=== PATIENT | female | born 1960 | race Caucasian/White ===

== ENCOUNTER 2024-12-14 05:44 | Emergency (ER) | payer OTHER, SELFPAY ==
[2024-12-14 05:44] VITALS: BMI 29.6
[2024-12-14 05:49] VITALS: BP 145/68
[2024-12-14 06:00] VITALS: BP 133/71
--- NOTE | 2024-12-14 06:41 | ED.GENMED ---
History of Present Illness
General
Chief Complaint: Dizziness
Source: patient and spouse
Time Seen by Provider: 12/14/24 06:20
History of Present Illness
History of Present Illness:
64-year-old female with no significant past medical history presenting to the emergency department for evaluation after she developed a rather sudden onset of vertigo early Wednesday morning, symptoms seem to be worse with movement, resolved when
laying still, initially more mild in presentation, symptoms mostly resolved yesterday with patient stating she felt as if she were in her usual state of health and then again this morning after she got up to use the restroom and go back into bed she
felt the sudden onset of vertigo with more intensity. She describes the sensation as if the room is spinning, when sitting still she states feeling a little bit better and only other symptom that she noted was some nausea. Patient did report in
triage that she felt a little bit of congestion but states that she does not feel this is any different than her usual. She does note that she was recently in [place] and the day that the symptoms started she was returning home. On the ride home
she said she was nauseous and needed to use the restroom more frequently to urinate but is otherwise not having any urinary symptoms and does note that she did drink a decent amount of water which could have been related. She denies any fevers or
recent URI-like symptoms, no chest pain or shortness of breath, no palpitations. She states the only time she has had vertigo like symptoms in the past was when she was on a [employer] but the symptoms dissipated quite quickly.
Past History
Past History
ED Past Medical History: None
ED Past Surgical History: and Orthopedic
Social History
Tobacco: Non-smoker
Alcohol: Occasional
Drug: None
Personal:
Living: with family
Employment: Employed
Review of Systems
Review of Systems
All Other Systems: ROS reviewed and negative except as documented in HPI and ROS
Phy Exam
Physical Exam
Physical Exam:
GENERAL: Alert , in no apparent distress
EYE: pupils equal and reactive, 4 mm bilateral, EOMI, leftward fatigable horizontal nystagmus noted which did elicit patient's vertigo
NECK: Supple
ENT: o/p clr, mmm.
CARDIAC: Regular rate and rhythm .
LUNGS: Clear breath sounds bilaterally, no acute respiratory distress, no wheezes/rales/rhonchi
ABDOMEN: Soft, without focal tenderness, no r/g, no cvat
NEUROLOGICAL: Alert and oriented, no focal neuro deficits, patient did ambulate with steady gait, no dysmetria or ataxia
SKIN: Warm and dry, skin intact.
MUSCULOSKELETAL: No edema, well perfused.
PSYCH: Normal and appropriate interaction.
Scores
Heart Failure Risk
Heart Failure Risk Score: Not Applicable
Heart Score for Chest Pain Patients
STEMI patient?: Not applicable
Withdrawal Assessment of Alcohol
Withdrawal Assessment Completed?: Not applicable
Course
Orders/Labs/Results
Orders:
Orders
12/14/24 06:40
Electrocardiogram (*1) Urgent
Reason for Study: Vertigo / Dizzy
CT Head W/o Iv Contrast Urgent
Comment:
Reason For Exam: vertigo
EKG- Treatment ONCE
Meclizine [Antivert] 25 mg PO NOW STA
Ondansetron Injectable [Zofran] 4 mg IV NOW STA
PT Consult [Pt Eval And Treat] Urgent
Treatment: vestibular tx
Activity Level: Ambulate
12/14/24 06:52
Basic Metabolic Panel Urgent
Complete Blood Count/With Diff Urgent
Urinalysis Reflex To Culture Urgent
Date Specimen was Collected: 12/14/24
Time Specimen was Collected: 06:41
Abnormal Lab Results
12/14/24
06:52
WBC 11.5 H 10^3/uL
(4.8-10.8)
MCH 31.8 H pg
(27.0-31.0)
Abs Immat Gran (auto) 0.2 H 10^3/uL
(0-0.05)
Absolute Neuts (auto) 9.1 H 10^3/uL
(1.4-6.5)
Immature Gran % 1.7 H %
(0-0.5)
Neutrophils % 78.8 H %
(42.2-75.2)
Lymphocytes % 13.4 L %
(20.5-51.1)
BUN 19 H mg/dl
(7-17)
Creatinine 0.5 L mg/dL
(0.6-1.0)
Glucose 169 H mg/dl
(70-99)
12/14/24 06:52
12/14/24 06:52
Vital Signs
Initial and Last Documented VS:
Initial Vital Signs
Temp Pulse Resp BP Pulse Ox
98.1 F 80 20 145/68 99
12/14/24 05:49 12/14/24 05:49 12/14/24 05:49 12/14/24 05:49 12/14/24 05:49
Last Documented Vital Signs
Temp Pulse Resp BP Pulse Ox
98 F 78 16 121/78 99
12/14/24 09:00 12/14/24 09:00 12/14/24 09:00 12/14/24 09:00 12/14/24 09:00
MDM/Problems Addressed
Differential Diagnosis Includes:
- BPPV
- Labyrinthitis
- Vestibular neuritis
- Central vertigo/cerebellar stroke
- Electrolyte imbalance
- Anemia
- Sinusitis
- Intracranial bleeding
- Cardiac arrhythmia
MDM/Problems Addressed:
64-year-old female presenting the ER for episodic vertigo, symptoms started Wednesday, improved yesterday but returned this morning more severe. Leftward horizontal nystagmus noted on exam which did elicit symptoms as well as movements exacerbating
symptoms. Patient otherwise well-appearing and in no acute distress. Will check labs, EKG, CT of the head. Initiate treatment with meclizine and Zofran, physical therapy consult ordered for vestibular therapy. Disposition pending.
*Radiology
Radiology exam reviewed: radiology read reviewed
*Pulse Oximetry
SaO2: 99
Oxygen Mode of Delivery: Room air
Patient hypoxic: no
*Critical Care Note
Total Time (30-74mins, 75-104mins- exclusive of procedures): Not Applicable
Patient Management
Escalation/DeEscalation of care consider admission/obs:
Patient CT scan is without any acute pathologies. Labs unremarkable. Feels better following meds and able to ambulate. Seen by PT. Recommended for outpatient treatment. Patient agreeable to this. Rx for zofran and antivert sent to pharmacy. Patient
aware of return precautions
ED Attending Note
-
Portions of this chart may have been created with voice recognition software.� Occasional wrong word or��sound alike� substitutions may have occurred due to the inherent limitations of voice recognition software.
Discharge Plan
Departure
Patient Disposition: Home (Routine Discharge)
Date of Disposition: 12/14/24
Time of Disposition: 09:09
Patient with high blood pressure during this ER visit?: Yes
Discharge Problem:
Vertigo
Instructions: Vertigo (a Type of Dizziness) (DC)
Prescriptions:
New
meclizine 25 mg tablet
25 mg PO TID PRN (Reason: dizziness) Qty: 15 0RF
ondansetron 4 mg tablet,disintegrating
4 mg PO TIDPRN PRN (Reason: nausea/vomiting) Qty: 10 0RF
Referrals:
UNKNOWN - PT DOES,NOT KNOW [Family Provider]
Interventions
Interventions:
*Risk Screen - Suicide Last Done: 12/14/24 05:49
*General Assessment Last Done: 12/14/24 05:49
*Neglect/Abuse Screening Last Done: 12/14/24 05:49
*ED- Fall Risk Assessment Last Done: 12/14/24 05:49
*ED COVID-19 Vaccine History Last Done: 12/14/24 05:49
*Nursing Disposition Last Done: 12/14/24 09:13
ED- Neurological Assessment Last Done: 12/14/24 06:40
ED- Cardiac Assessment Last Done: 12/14/24 09:13
ED Swallowing Screen Last Done: 12/14/24 06:40
Discharge Date and Time
Discharge Date/Time: 12/14/24 09:13
Print Language: PASHTO
[2024-12-14] MEDS: ZOFRAN 4 MG IV (06:46)
[2024-12-14] MEDS: ANTIVERT 25 MG PO (06:46)
[2024-12-14 06:58] LABS: % Basophils 0.4 % (0-2); % Eosinophils 0.6 % (0-6); % Immature Granulocytes 1.7 % (0-0.5); % Lymphocytes 13.4 % (20.5-51.1); % Monocytes 5.1 % (1.7-9.3); % Neutrophils 78.8 % (42.2-75.2); Absolute Basophils 0.1 10^3/uL (0-0.2); Absolute Eosinophils 0.1 10^3/uL (0-0.7); Absolute Immature Granulocytes 0.2 10^3/uL (0-0.05); Absolute Lymphocytes 1.5 10^3/uL (1.2-3.4); Absolute Monocytes 0.6 10^3/uL (0.1-0.6); Absolute Neutrophils 9.1 10^3/uL (1.4-6.5); Hematocrit 39.7 % (37.0-47.0); Hemoglobin 14.1 g/dL (12.0-16.0); Mean Corp Hgb Conc. 35.5 g/dL (33.0-37.0); Mean Corpuscular Hgb 31.8 pg (27.0-31.0); Mean Corpuscular Volume 89.6 fL (81.0-99.0); Mean Platelet Volume 10.1 fL (7.4-10.4); Nucleated Red Blood Cells % 0 %; Platelet Count 246 10^3/uL (130-400); Red Blood Cell Count 4.43 10^6/uL (4.20-5.40); Red Cell Dist. Width 13.2 % (11.5-14.5); White Blood Cell Count 11.5 10^3/uL (4.8-10.8)
[2024-12-14 07:08] LABS: Urine Albumin Negative (Neg - Trace); Urine Bilirubin Negative (Negative); Urine Character Clear (Clear); Urine Color Yellow; Urine Glucose Negative (Negative); Urine Ketone Negative (Negative); Urine Leukocyte Negative (Negative); Urine Nitrite Negative (Negative); Urine Occult Blood Negative (Negative); Urine Urobilinogen Negative (Neg - 1+)
[2024-12-14 07:29] LABS: Blood Urea Nitrogen 19 mg/dl (7-17); Calcium 9.4 mg/dl (8.4-10.2); Carbon Dioxide 24 mmol/L (22-30); Chloride 107 mmol/L (98-107); Estimated Creatinine Clearance 82 ml/min; Glucose 169 mg/dl (70-99); Potassium 3.9 mmol/L (3.5-5.1); Sodium 138 mmol/L (135-145); eGFR > 60.00
[2024-12-14 09:00] VITALS: BP 121/78
== END 2024-12-14 09:13 | disposition home or self-care (01) ==
LOC: EMR 05:44
PROVIDERS: Physician Assistant Medical; EMERGENCY PHYSICIAN Student in an Organized Health Care Education/Training Program
DX: R42 Dizziness and giddiness (principal); Z59.12 Inadequate housing utilities
CPT/HCPCS: 99284; 96374; 70450; 80048; 81003; 85025; 93005